=== PATIENT | female | born 1985 | race Caucasian/White ===

== ENCOUNTER → 2018-03-30 | Outpatient (REF) | payer OTHER ==
[2018-03-30 19:15] LABS: PLATELET COUNT, AUTOMATED 248 K/uL (150-450)
== END ==
PROVIDERS: ATTEND Physician Assistant Medical
DX: R10.10 Upper abdominal pain, unspecified (principal); R19.7 Diarrhea, unspecified
CPT/HCPCS: 82040; 82150; 82247; 82310; 82374; 82435; 82565; 82947; 83690; 84075; 84132; 84155; 84295; 84450; 84460; 84520; 85025

== ENCOUNTER → 2018-03-31 | Outpatient (CLI) | payer OTHER ==
--- NOTE | 2018-03-31 14:56 | RADIOLOGY IMAGING REPORT ---
FACILITY: [facility] [place] PATIENT NAME: Janeth Vergara : 1985 MR: [id number] V: [id number] EXAM DATE: ORDERING PHYSICIAN: RAMAN HUI TECHNOLOGIST: Location: [facility] Patient: Janeth Vergara : 1985 Visit/Account:[id number] Date of Sevice: 03/31/2018 Focused right upper quadrant ultrasound HISTORY: Upper abdominal pain. COMPARISON: None available. Findings: Standard right upper quadrant abdominal ultrasound is performed. Pancreas: Visualized portions of the pancreas are unremarkable. Liver: Negative. Gallbladder and biliary system: No gallbladder stone or sludge. No wall thickening, pericholecystic f luid, or sonographic Rodríguez's. The common bile duct is not dilated. Aorta and IVC: The visualized aorta and IVC are patent. Kidneys: The right kidney measures 10.8 x 4.7 x 5.5 cm. Normal echogenicity. No hydronephrosis. Ascites: None. IMPRESSION: Normal right upper quadrant ultrasound. Report Dictated By: Nicko Bradshaw MD at 03/31/2018 2:51 PM Report E-Signed By: Nicko Bradshaw MD at 03/31/2018 2:53 PM WSN:[id number]
== END ==
LOC: US 10:35
PROVIDERS: ATTEND Nurse Practitioner Family
DX: R10.10 Upper abdominal pain, unspecified (principal); R19.7 Diarrhea, unspecified
CPT/HCPCS: 76705